=== PATIENT | female | born 1995 | race African-American/Black ===

== ENCOUNTER 2021-12-04 20:27 | Inpatient (IN) ==
[2021-12-04 22:40] LABS: Bilirubin,Urine Negative (Negative); Blood,Urine Negative (Negative); Clarity,Urine Clear (Clear); Color,Urine Light-Yellow (Yellow); Glucose,Urine (UA) Normal (Normal); Ketones,Urine Negative (Negative); Leukocyte Esterase,Urine Negative (Negative); Nitrite,Urine Negative (Negative); Protein,Urine Trace mg/dL (Neg-Trace); Specific Gravity,Urine 1.019 (1.010-1.025); Urobilinogen,Urine Normal (Normal)
[2021-12-04 22:50] LABS: Amphetamine Screen,Urine Negative ng/mL (Cutoff=1000); Barbiturate Screen,Urine Negative ng/mL (Cutoff=200); Benzodiazepines Screen,Urine Negative ng/mL (Cutoff=200); Cannabinoid Screen,Urine Negative ng/mL (Cutoff = 50); Cocaine Screen,Urine Negative ng/mL (Cutoff= 300); Opiate Screen,Urine Negative ng/mL (Cutoff=300); Phencyclidine Screen,Urine Negative ng/mL (Cutoff=25)
[2021-12-04 22:52] LABS: Basophils # 0.1 K/mcL (0.0-0.2); Basophils % 0.6 %; Eosinophils # 0.3 K/mcL (0.0-0.6); Hematocrit 39.7 % (35.3-44.9); Hemoglobin 13.4 g/dL (11.5-15.4); Immature Granulocytes % 0.2 % (0-4); Lymphocytes # 4.4 K/mcL (0.6-4.6); Lymphocytes % 40.6 %; Mean Corpuscular HGB Conc 33.8 g/dL (31.6-35.5); Mean Corpuscular Volume 79.9 fL (83.0-100.0); Mean Platelet Volume 9.7 fL (9.4-12.4); Monocytes # 0.6 K/mcL (0.0-1.3); Monocytes % 5.7 %; Neutrophils # 5.4 K/mcL (1.6-8.9); Platelet Count 311 K/mcL (140-400); Red Blood Count 4.97 M/mcL (3.82-4.97); Red Cell Distribution Width 13.8 % (11.5-14.5); Segmented Neutrophils % 49.9 %; White Blood Count 10.8 K/mcL (4.3-11.1)
[2021-12-04 23:04] LABS: Acetaminophen < 10 mcg/mL (10-20); BUN/Creatinine Ratio 10 (6-26); Blood Urea Nitrogen 10 mg/dL (6-20); Calcium 9.1 mg/dL (8.6-10.3); Carbon Dioxide 22 mEq/L (23-29); Chloride 104 mEq/L (98-107); Ethanol < 10 mg/dL (Less than 10); Glucose 84 mg/dL (70-105); Osmolality,Calculated 278 (280-300); Salicylate < 2.5 mg/dL (15.0-30.0); Sodium 135 mEq/L (136-145); eGFR For African Americans > 60 (> 60); eGFR For Non-African Americans > 60 (> 60)
[2021-12-05 06:20] LABS: Influenza A PCR Negative (Negative); Influenza B PCR Negative (Negative); Resp. Syncytial Virus PCR Negative (Negative)
[2021-12-05 06:23] LABS: SARS-CoV-2 by PCR (In House) Negative (Negative)
[2021-12-05] MEDS ORDERED: *HR* LORazepam 1 MG TABLET PO PRN (07:01)
[2021-12-05] MEDS ORDERED: Acetaminophen 325 MG TABLET PO PRN (07:01)
[2021-12-05] MEDS ORDERED: Haloperidol Lactate 5 MG/ML VIAL IM PRN (07:01)
[2021-12-05] MEDS ORDERED: *HR* LORazepam 2 MG/ML VIAL IM PRN (07:01)
[2021-12-05] MEDS ORDERED: hydrOXYzine pamoate 25 MG CAPSULE PO PRN (07:01)
[2021-12-05] MEDS ORDERED: haloperidoL 5 MG TABLET PO PRN (07:01)
[2021-12-05] MEDS ORDERED: Mag Hydrox/Al Hydrox/Simeth 30 ML UDC PO PRN (08:05)
[2021-12-05] MEDS ORDERED: MOM Conc 10 ML UD.LIQ PO PRN (08:05)
[2021-12-05] MEDS: Prenatal Vit/FA 1 EACH TABLET PO SCH (12:24)
[2021-12-05] MEDS: *HR* Metformin 500 MG TABLET PO SCH (12:25)
[2021-12-05 20:32] VITALS: O2SAT 97
[2021-12-06] MEDS: Prenatal Vit/FA 1 EACH TABLET PO SCH (09:05)
[2021-12-06] MEDS: *HR* Metformin 500 MG TABLET PO SCH (09:05)
[2021-12-06 09:20] VITALS: BP 145/91; PULSE 75; TEMP 97.7
== END 2021-12-06 12:55 | disposition home or self-care (01) | DRG 885 ==
LOC: EMEROOARM 20:27 → 1ANU 12-05 06:54
PROVIDERS: ADMIT Psychiatry & Neurology Psychiatry; ATTEND Psychiatry & Neurology Psychiatry